=== PATIENT | male | born 1960 | race African-American/Black ===

== ENCOUNTER 2020-07-30 11:35 | Emergency (ER) | payer OTHER ==
[2020-07-30] MEDS ORDERED: DEXAMETHASONE 2M2 MG PO (15:24)
== END 2020-07-30 15:48 | disposition home or self-care (01) ==
LOC: FER 11:35
DX: R06.02 Shortness of breath (principal); R05 Cough; T50.B95A Adverse effect of other viral vaccines, initial encounter; J38.3 Other diseases of vocal cords; E11.9 Type 2 diabetes mellitus without complications; Z79.4 Long term (current) use of insulin; Z86.16 Personal history of COVID-19
CPT/HCPCS: 71045